=== PATIENT | female | born 1950 | race Caucasian/White ===

== ENCOUNTER 2024-07-12 10:30 | Outpatient (CLI) | payer MEDICARE, BC, SELFPAY ==
--- NOTE | 2024-07-12 11:00 | CRLHL7_ITS ---
For Patients: As a result of the Century Cures Act, medical imaging exams and procedure reports are released immediately into your electronic medical record. You may view this report before your referring provider. If you have questions, please contact your health care provider. Indication: HEARING A GONG LIKE SOUND IN LT EAR; NO PAIN; HX FLUCTUATING SENSORINEURAL LOSS Technique: Performed without IV contrast Comparison: None available Findings: Frontal sinuses: Clear. Ethmoid sinuses: Clear. Maxillary sinuses: Minimal mucosal thickening inferior right maxillary sinus. Clear left maxillary sinus. The maxillary sinus drainage pathways are patent on both sides. Sphenoid sinuses: Clear, including both sphenoethmoidal recesses. Nasal Cavity: Mild S shaped curvature of the nasal septum. No nasal polyps. Degenerative changes at the temporomandibular joints. Clear middle ear cavities and mastoid air cells. Incidental calcifications of the palatine tonsils. Impression: 1. Minimal right maxillary sinus disease. 2. Mild S shaped curvature of the nasal septum. Please note that all CT scans at this facility use dose modulation, iterative reconstruction, and/or weight-based dosing when appropriate to reduce radiation dose to as low as reasonably achievable. Dictated by Ti Fenton MD @ 07/12/2024 12:29:35 PM (Electronically Signed)
== END 2024-07-12 10:31 | disposition home or self-care (01) ==
LOC: CT 10:32
PROVIDERS: PCP Internal Medicine; Visit Provider Otolaryngology
DX: R51.9 Headache, unspecified (principal); J32.0 Chronic maxillary sinusitis; J34.2 Deviated nasal septum
CPT/HCPCS: 70486

== ENCOUNTER 2024-09-15 06:56 | Outpatient (CLI) | payer MEDICARE, BC, SELFPAY ==
--- NOTE | 2024-09-15 07:15 | MR_ITS ---
[address] [address] Phone:?[phone] Fax:?[phone] Referring Physician Information: Esme Mohamud [id number] [facility] [address] Phone:?[phone] Fax:?[phone] Patient:?Sera Barrera D.O.B:?1950 Sex:?Female Phone:?[phone] [facility] MRN:?[id number] Exam Date:?09/15/2024 EXAM: MRI of the LEFT SHOULDER WITHOUT CONTRAST CLINICAL HISTORY: Ongoing left shoulder pain. Primary osteoarthritis of the left shoulder. Evaluate the acromioclavicular joint, glenohumeral joint, and rotator cuff. COMPARISONS: Plain radiographs 07/31/2024. TECHNICAL: MRI sequences of the left shoulder: Axials: PD, T2 Coronals: PD, STIR, T2 Sagittals: PD, T2 SEDATION: None CONTRAST: None FINDINGS: Bones: No fracture or destructive osseous lesion. Coracoacromial arch: Acromion: No os acromiale. Type I-II acromion. Acromiohumeral space: The bony distance is unremarkable. Acromioclavicular joint: Ill-defined age-indeterminate tearing of the acromioclavicular joint ligament. Mild acromioclavicular joint degenerative changes. Coracoclavicular ligament: The coracoclavicular ligament is intact. No superior subluxation of the distal clavicle. Rotator cuff muscles/tendons: Supraspinatus: 1.0 cm in AP dimension by 0.6 cm in transverse dimension ill- defined partial-thickness bursal sided tear of the anterior portion of the supraspinatus tendon insertion contacting the cortical insertional surface, involving greater than 50% of the tendon thickness, and superimposed upon moderate supraspinatus tendinopathy. No muscular atrophy. Infraspinatus: Mild tendinopathy. No muscular atrophy. Teres minor: The teres minor tendon and muscle are intact. Subscapularis: Slight tendinopathy. No muscular atrophy. Labrum and glenohumeral joint: Fraying of essentially the entire labrum. Small glenohumeral joint effusion. Numerous low signal foci throughout the glenohumeral joint and recesses likely reflect a combination of chondral bodies and thickened pieces of synovium. 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 A 6 x 5 x 6 mm low signal focus within the posterior aspect of the axillary recess is concerning for an intra-articular body. There is mild edema-like signal within and mild thickening of the inferior glenohumeral ligament. Proximal biceps tendon, long head and short heads: Biceps tenosynovitis. No tear or medial subluxation of the proximal long head of the biceps tendon. The short head is intact. Bursae: Subacromial/subdeltoid: Moderate bursitis. Subcoracoid: No convincing subcoracoid bursal thickening/bursitis. IMPRESSION: 1. 1.0 x 0.6 cm ill-defined partial-thickness bursal sided tear of the anterior portion of the supraspinatus tendon insertion contacting the cortical insertional surface, involving greater than 50% of the tendon thickness, and superimposed upon moderate supraspinatus tendinopathy. 2. Mild infraspinatus tendinopathy. 3. Slight subscapularis tendinopathy. 4. No rotator cuff muscular atrophy. 5. 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 A 6 x 5 x 6 mm low signal focus within the posterior aspect of the axillary recess is concerning for an intra-articular body. 6. Small glenohumeral joint effusion. Numerous foci of low signal throughout the glenohumeral joint and recesses likely reflect a combination of chondral bodies and thickened pieces of synovium. 7. Moderate subacromial/subdeltoid bursitis. 8. Biceps tenosynovitis. 9. Evidence of adhesive capsulitis is equivocal in this case, and adhesive capsulitis is more of a clinical diagnosis. Correlate with active and passive range of motion. 9. Ill-defined age-indeterminate tearing of the acromioclavicular joint ligament. Mild acromioclavicular joint degenerative changes. Intact coracoclavicular ligament without superior subluxation of the distal clavicle. RCB Electronically signed on 09/15/2024 9:52:00 AM by Mason Marin M.D.
== END 2024-09-15 06:57 | disposition home or self-care (01) ==
LOC: MRI 06:59
PROVIDERS: PCP Internal Medicine; Visit Provider Physician Assistant
DX: M25.512 Pain in left shoulder (principal); M19.012 Primary osteoarthritis, left shoulder; M75.102 Unspecified rotator cuff tear or rupture of left shoulder, not specified as traumatic; M25.412 Effusion, left shoulder; M75.52 Bursitis of left shoulder; M75.22 Bicipital tendinitis, left shoulder; M75.02 Adhesive capsulitis of left shoulder; S43.52XA Sprain of left acromioclavicular joint, initial encounter
CPT/HCPCS: 73221

== ENCOUNTER 2024-10-30 08:21 | Outpatient (CLI) | payer MEDICARE, BC, SELFPAY | END 2024-10-30 08:22 | disposition home or self-care (01) | LOC: NFLDREF 11-02 20:56 | PROVIDERS: PCP Internal Medicine; Referring Provider Internal Medicine; Visit Provider Otolaryngology | DX: H91.90 Unspecified hearing loss, unspecified ear (principal); Z13.29 Encounter for screening for other suspected endocrine disorder; Z13.0 Encounter for screening for diseases of the blood and blood-forming organs and certain disorders involving the immune mechanism | CPT/HCPCS: 84443; 85027; 85651; 86038; 86431; 86618 ==

== ENCOUNTER 2024-11-08 09:49 | Outpatient (CLI) | payer MEDICARE, BC, SELFPAY ==
--- NOTE | 2024-11-08 10:15 | CRLHL7_ITS ---
For Patients: As a result of the Century Cures Act, medical imaging exams and procedure reports are released immediately into your electronic medical record. You may view this report before your referring provider. If you have questions, please contact your health care provider. INDICATION: Unspecified hearing loss. COMPARISON: 07/12/2024. TECHNIQUE: Multiplanar T1, T2, FLAIR and diffusion-weighted imaging.. Post gadolinium T1 weighted sequences. Additional pre and post and sequences of the skullbase and IAC`s. FINDINGS: Normal brain parenchymal morphology. Scattered foci of T2/FLAIR signal hyperintensity within the white matter of both cerebral hemispheres are nonspecific and may represent chronic deep white matter small ischemic changes. No intracranial hemorrhage. No abnormal ventricular dilatation. Cavum septum pellucidum et vergae which is a normal variant. Intracranial vascular flow voids are preserved. No mass effect. No midline shift. No restricted diffusion to suggest acute ischemia. No abnormal enhancement or enhancing lesions within the brain parenchyma. Dedicated sequence of the skullbase and IAC`s demonstrates normal course of cranial nerves 7 and 8 from the root entry zone to the fundus of the IAC`s. Normal fluid signal within the cochlea and vestibule. Normal root entry zone of the bilateral trigeminal nerves. No abnormal mass or enhancement within cerebellopontine angles or IAC`s. Bilateral orbits are unremarkable. Normal appearing sella. Visualized paranasal sinuses and mastoid air cells are unremarkable. IMPRESSION: 1. No acute intracranial abnormality 2. Normal brain parenchymal morphology. Scattered foci of T2 signal within the white matter of both cerebral hemispheres are nonspecific and may represent chronic deep white matter small vessel ischemic changes 3. No abnormal enhancement or enhancing lesions 4. Dedicated imaging of the skull base and IAC`s demonstrates normal course of the cranial nerves. No abnormal mass or enhancement Dictated by Nikolas Narayanan MD @ 11/08/2024 12:36:52 PM (Electronically Signed)
== END 2024-11-08 09:50 | disposition home or self-care (01) ==
LOC: MRI 09:51
PROVIDERS: PCP Internal Medicine; Visit Provider Otolaryngology
DX: H91.90 Unspecified hearing loss, unspecified ear (principal)
CPT/HCPCS: 70553; A9575